=== PATIENT | female | born 1960 | race Caucasian/White ===

== ENCOUNTER 2017-07-18 18:37 | Observation (INO) | payer BC ==
[~2017-07-18] VITALS: Ht 162.6 cm; Wt 79.3 kg
[2017-07-18 19:13] LABS: HEMATOCRIT 39.4 % (36.0-46.0); HEMOGLOBIN 13.6 G/DL (11.9-15.5); MCH 26.6 PG (29.0-34.0); MCHC 34.5 G/DL (30.0-36.0); PLATELET COUNT 207 K/uL (156-360); RBC DIS.WIDTH-CV 13.3 % (11.8-14.6); RBC DIS.WIDTH-SD 36.7 % (39-53); RED BLOOD COUNT 5.12 M/uL (3.80-5.20); WHITE BLOOD COUNT 5.1 K/uL (4.1-10.2)
[2017-07-18 19:27] LABS: ALBUMIN 4.4 g/dL (3.2-4.8); CHLORIDE 105 mEq/L (99-109); POTASSIUM 3.2 mEq/L (3.7-5.4); SODIUM 140 mEq/L (136-147)
[2017-07-18 19:30] LABS: GLUCOSE 94 mg/dL (70-99); TOTAL PROTEIN 7.4 g/dL (6.4-8.3)
[2017-07-18 19:31] LABS: TOTAL BILIRUBIN 0.5 mg/dL (0.0-1.0)
[2017-07-18 19:33] LABS: ALKALINE PHOSPHATASE 90 IU/L (3-129); CREATININE 0.8 mg/dL (0.6-1.3)
[2017-07-18 19:34] LABS: UREA NITROGEN (BUN) 9 mg/dL (9-23)
[2017-07-18 19:35] LABS: AST (GOT) 22 IU/L (2-34); GFR ESTIMATE (CALCULATED) > 59 mL/min/
[2017-07-18 19:36] LABS: ALT (GPT) 18 IU/L (3-49)
[2017-07-18 19:37] LABS: LIPASE 29 U/L (1.0-51.0)
[2017-07-18 19:43] LABS: QUANTITATIVE HCG 4.8 MIU/ML
[2017-07-18 19:52] LABS: APPEARANCE CLEAR ((CLEAR)); BILIRUBIN NEGATIVE; BLOOD NEGATIVE; COLOR YELLOW ((YELLOW)); GLUCOSE (STRIP) NEGATIVE; KETONES NEGATIVE; LEUKOCYTES NEGATIVE; NITRITE NEGATIVE; PROTEIN (STRIP) NEGATIVE; SPECIFIC GRAVITY 1.013 (1.000-1.030); UCUL ADDED? NO; UROBILINOGEN 0.2 MG/DL (0.2-1.0)
[2017-07-18 21:15] LABS: TROP-I INTERPRETATION NEGATIVE; TROPONIN-I < 0.01 ng/mL (0.0-0.30)
[2017-07-18 23:03] LABS: THYROTROPIN (TSH) 2.6 MIU/L (0.4-5.5)
[2017-07-18] MEDS ORDERED: ALPRAZOLAM0.25 M2 PO (23:53)
[2017-07-18] MEDS ORDERED: AMLODIPINE BESYL5 MG PO (23:54)
[2017-07-19] MEDS ORDERED: ESCITALOPRAM OX20 MG PO (00:06)
[2017-07-19] MEDS ORDERED: FLONASE16 G1 BOTH NARES (00:08)
[2017-07-19] MEDS ORDERED: ESTRADIOL1 EA14 TD (00:10)
[2017-07-19] MEDS ORDERED: LOSARTAN-HCTZ1 EAC2 PO (00:10)
[2017-07-19] MEDS ORDERED: ROPINIROLE HCL0.5 MG PO (00:11)
[2017-07-19] MEDS ORDERED: POTASSIUM CHLO20 ME1 PO (00:13)
[2017-07-19 05:25] VITALS: BP 129/71
[2017-07-19 05:50] LABS: BASOPHIL (%) 0.5 % (0-1); EOSINOPHIL (%) 2.8 % (0-5); EOSINOPHIL COUNT 0.2 K/uL (0-0.3); HEMATOCRIT 39.8 % (36.0-46.0); HEMOGLOBIN 13.2 G/DL (11.9-15.5); IMMATURE GRANULOCYTE (%) 0.2 % (0.0-0.7); LYMPHOCYTE (%) 42.2 % (15-42); LYMPHOCYTE COUNT 2.4 K/uL (1.0-2.8); MCH 25.7 PG (29.0-34.0); MCHC 33.2 G/DL (30.0-36.0); MCV 77.6 FL (83-99); MONOCYTE (%) 10.1 % (3-12); MONOCYTE COUNT 0.6 K/uL (0-0.8); NEUTROPHIL (%) 44.2 % (45-76); NEUTROPHIL COUNT 2.5 K/uL (1.8-6.4); PLATELET COUNT 202 K/uL (156-360); RBC DIS.WIDTH-CV 13.3 % (11.8-14.6); RBC DIS.WIDTH-SD 37.7 % (39-53); RED BLOOD COUNT 5.13 M/uL (3.80-5.20); WHITE BLOOD COUNT 5.6 K/uL (4.1-10.2)
[2017-07-19 06:13] LABS: CHLORIDE 105 MEQ/L (99-109); CREATININE 0.9 MG/DL (0.6-1.3); GFR ESTIMATE (CALCULATED) > 59 mL/min/; GLUCOSE 95 mg/dL (70-99); POTASSIUM 3.5 MEQ/L (3.7-5.4); SODIUM 141 MEQ/L (136-147); UREA NITROGEN (BUN) 11 mg/dL (9-23)
[2017-07-19 07:25] VITALS: BP 130/77
[2017-07-19 09:12] LABS: MAGNESIUM 2.1 mg/dl (1.3-2.7)
[2017-07-19 11:10] VITALS: BP 132/80
[2017-07-19] MEDS ORDERED: LOSARTAN POTAS100 MG PO (14:37)
== END 2017-07-19 14:58 | disposition home or self-care (01) ==
LOC: EME 18:37 → EXP 18:37 → EDOF 23:32 → 4SOUTH 23:32 → EDOF 23:32 → ENRESERV 23:35 → 4SOUTH 07-19 01:47
PROVIDERS: Internal Medicine
DX: E86.0 Dehydration (principal); A08.4 Viral intestinal infection, unspecified; R00.1 Bradycardia, unspecified; Q28.3 Other malformations of cerebral vessels; E87.6 Hypokalemia; I10 Essential (primary) hypertension; Z82.49 Family history of ischemic heart disease and other diseases of the circulatory system; Z90.710 Acquired absence of both cervix and uterus; F17.200 Nicotine dependence, unspecified, uncomplicated
CPT/HCPCS: 70450; 70544; 70553; 71045; 74019; 74177; 76705; 80048; 80053; 81003; 83690; 83735; 84443; 84484; 84702; 85025; 85027; 93005; 93306; 99281; 99284; C9113; G0378; J7030